=== PATIENT | female | born 1985 | race Two or more races ===

== ENCOUNTER → 2020-10-02 | Outpatient (CLI) | payer OTHER ==
[~2020-10-02] MED LIST: AUGMENTIN 875-1 EACH PO; IBUPROFEN600 MG PO; MUCINEX600 MG PO; PREDNISONE 20 M20 MG PO; ZOVIRAX 800 MG800 MG PO
[2020-10-02 09:55] LABS: HEMOGLOBIN 10.5 gm/dl (12.3-15.3); RED BLOOD COUNT 4.38 M/UL (4.00-5.10); WHITE BLOOD COUNT 8.1 K/UL (4.5-11.0)
[2020-10-02 10:21] LABS: BUN/CREATININE RATIO 13 (0-10)
== END ==
LOC: LAB 09:05
PROVIDERS: Family Medicine
DX: D50.9 Iron deficiency anemia, unspecified (principal); I10 Essential (primary) hypertension
CPT/HCPCS: 36415; 80053; 82728; 83540; 83550; 85025; 85045

== ENCOUNTER → 2020-10-23 | Outpatient (CLI) | payer OTHER | LOC: KOH-I 10-13 13:00 | DX: R51.9 Headache, unspecified (principal); J32.4 Chronic pansinusitis | CPT/HCPCS: 70551 ==

== ENCOUNTER → 2020-11-24 | Outpatient (CLI) | payer OTHER | LOC: KOH-I 08:00 | DX: R79.89 Other specified abnormal findings of blood chemistry (principal); R16.0 Hepatomegaly, not elsewhere classified; N20.0 Calculus of kidney | CPT/HCPCS: 76700 ==

== ENCOUNTER → 2020-12-25 | Outpatient (CLI) | payer OTHER ==
[2020-12-25 12:56] LABS: HEMOGLOBIN 13.8 gm/dl (12.3-15.3); RED BLOOD COUNT 4.41 M/UL (4.00-5.10); WHITE BLOOD COUNT 7.4 K/UL (4.5-11.0)
[2020-12-26 08:14] LABS: HBSAG SCREEN Negative (Negative); HEP A AB, IGM Negative (Negative); HEP B CORE AB, IGM Negative (Negative); HEP C VIRUS AB >11.0 (0.0-0.9)
== END ==
LOC: LAB 11:44
PROVIDERS: Family Medicine
DX: R79.89 Other specified abnormal findings of blood chemistry (principal); D50.9 Iron deficiency anemia, unspecified
CPT/HCPCS: 36415; 80074; 80076; 82728; 83540; 83550; 85025; 85045

== ENCOUNTER → 2020-12-30 | Outpatient (CLI) | payer OTHER ==
[2021-01-02 20:09] LABS: HCV LOG10 4.811 (.); HEPATITIS C GENOTYPE 2b (.); HEPATITIS C QUANTITATION 64700 IU/mL (.)
== END ==
LOC: LAB 13:10
PROVIDERS: Family Medicine
DX: B19.20 Unspecified viral hepatitis C without hepatic coma (principal)
CPT/HCPCS: 36415; 87522

== ENCOUNTER → 2021-09-01 | Outpatient (CLI) | payer OTHER | LOC: EXRD 09:24 | DX: M25.561 Pain in right knee (principal) | CPT/HCPCS: 73564 ==